=== PATIENT | female | born 1980 ===

== ENCOUNTER 2024-09-19 05:22 | Inpatient (IN) | payer OTHER ==
[~2024-09-19] VITALS: Ht 152.4 cm; Wt 70.8 kg
[2024-09-19] MEDS: LIDOCAINE 2%HCL (LOCAL ANESTH.) INJ 20ML MDV ONE (05:41)
[2024-09-19] MEDS: LACT. RINGERS/OXYTOCIN 20UNITS 1,000 ML IV ONE (05:41)
[2024-09-19] MEDS: PHISODERM TOP SOLN 240ML BTL TOP ONE (05:41)
[2024-09-19] MEDS: WITCH HAZEL-GLYCERIN PAD TOP ONE (05:41)
[2024-09-19] MEDS: DERMOPLAST 60ML BOTTLE TOP ONE (05:41)
[2024-09-19] MEDS: METHYLERGONOVINE MALEATE 0.2 MG/ML AMP IM ONE (05:42)
[2024-09-19] MEDS ORDERED: LIDOCAINE 2%HCL (LOCAL ANESTH.) INJ 20ML MDV IJ PRN (05:45)
[2024-09-19] MEDS ORDERED: LACTATED RINGER'S 1,000 ML IV SCH (05:45)
[2024-09-19] MEDS: PENICILLIN G POT 5MIL/D5 50ML 50 ML IV ONE ×2 (05:49→06:41)
--- NOTE | 2024-09-19 05:50 | DVHHP2 ---
OB CC & HPI Patient Identification: : 7 Para: 5 EDC: Oct 01, 2024 EGA: 38 weeks Chief Complaints: Reason for admission: active labor (complete dilated " 4cm since August" No records immediately available " group B Strep +" ; pre care " [facility] " ), other (On ASA daily for " low BP".) Other reason for admission: active Labor Admission Nurse Assessment Rev: Yes Past Medical History Cardiac: No pertinent Hx Pulmonary: No pertinent Hx Central Nervous System: No pertinent Hx GI: No pertinent Hx Hemotology/Oncology: No pertinent Hx Hepatobiliary: No pertinent Hx Psychiatric: No pertinent Hx Musculoskeletal: No pertinent Hx Rheumotologic: No pertinent Hx Infectious Disease: No peritnent Hx ENT: No pertinent Hx Renal/: No pertinent Hx Endocrine: No pertinent Hx Dermatology: No pertinent Hx Past Surgical History: No pertinent Hx OB History OB History Care: Good Care (" [facility] ") Ultrasounds: Normal mid trimester US (Per Patient verbal) Obstetrical Complications: Other (" Low BP") Other Concerns: On "ASA daily questionable why ". Allergies nkda Home Meds asa daily Current Medications ASA daily Family & Social History Family/Social History Blood Type: Unknown Rubella: unknown RPR/VDRL: Unknown GBS Status: Positive HBsAG: Unknown Review of Systems Constitutional: No symptom reported Ears, Nose, & Throat: No symptom reported Eyes: No symptom reported Pulmonary/Respiratory: No symptom reported Cardiovascular: No symptom reported Gastrointestinal: No symptom reported Genitourinary: No symptom reported Musculoskeletal: No symptom reported Skin: No symptom reported Psychiatric: No symptom reported Endocrine: No symptom reported Hemotologic/Lymphatic: No symptom reported OB Admission Exam Physical Exam HEENT: TMs Normal, Fontanelles Normal, Nasal Mucosa Normal, Eyes non-injected, Oropharynx Normal, PERRLA, Moist Membranes, EOMI Heart: Rhythm Normal Lungs: Clear Abdomen: Gravid Extremities: Normal Cervical Dilatation: 10cm Effacement: 100% Station: 0 Membranes: Intact Heart Rate: 130's Accelerations: Accelerations Present Decelerations: Early Decelerations Short Term Variability: Present Long-Term Variability: Average (6-25) Contractions on Admission: < 5 Minutes Apart Date/Time Contractions Began: 09/19/2024 Frequency of Contractions: q 3-5 min Duration: 1.5 min Intensity: Moderate OB Plan Plan Admitting Diagnosis: Active Labor ; PCN delicia for Group B Strep Expectant mgt Plan: Expectant Management JEFFERY AMIN DO Sep 19, 2024 05:50
--- NOTE | 2024-09-19 05:55 | LDN2 ---
Labor and Delivery Note Date 09/19/24 Age 43 7 Para 5 AB 2 EDC 10/01/2024 EGA 38 wks Diagnosis Active labor arrived 10cm Grand Multip Vaginal Delivery: VTX Vacuum Assisted: No Placenta: Spontaneous Sex: Female Weight 7lbs 30z Apgars 9/9 Nuchal Cord Transected: Yes (loose x1) Amniotic Fluid: Clear Anesthesia none Episiotomy: No Extension: No EBL 350 cc Complications none Conditions stable Farm Equipment Technician non present or needed Visit Coding OBGYN Date of Service: Sep 18, 2024 Billing Provider: JEFFERY AMIN DO BARREL MARKER Common Visit Codes: 45853-FLY/OBS SAME DATE (LOW), 66977-CYG/OBS SAME DATE (MOD), 72722-FBG/OBS SAME DATE (HIGH) BARREL MARKER Procedure Codes: 00815-ZNV DEL INCLUDING JEFFERY AMIN DO Sep 19, 2024 05:55
[2024-09-19] MEDS ORDERED: METHYLERGONOVINE MALEATE 0.2 MG/ML AMP IM PRN (06:30)
[2024-09-19] MEDS: LACT. RINGERS/OXYTOCIN 20UNITS 500 ML IV ONE ×2 (06:42→08:26)
[2024-09-19 06:54] LABS: Hematocrit 34.5 % (36.0-46.0); Hemoglobin 12.2 g/dL (12.2-16.2); Mean Corpuscular Hemoglobin 31.0 pg (28.0-32.0); Mean Corpuscular Volume 87.7 fL (80.0-100.0); Nucleated Red Blood Cells % 0.1 %
[2024-09-19 06:59] LABS: Alanine Aminotransferase < 9 U/L (7-40); Albumin 4.0 g/dL (3.2-4.8); Alkaline Phosphatase 170 U/L (46-116); Anion Gap 14 (5-15); BUN/Creatinine Ratio 19.2 (10.0-20.0); Bilirubin, Total 0.5 mg/dL (0.2-1.0); Blood Urea Nitrogen 10 mg/dL (9-23); Calcium 8.5 mg/dL (8.7-10.4); Carbon Dioxide 20 mmol/L (20-31); Chloride 105 mmol/L (98-107); Glucose 94 mg/dL (74-106); Potassium 3.9 mmol/L (3.5-5.1); Sodium 139 mmol/L (136-145); Total Protein 6.7 g/dL (5.7-8.2)
[2024-09-19 07:01] LABS: INR 0.92 (0.9-1.15); Partial Thromboplastin Time 24.6 SEC (24.5-34.5); Prothrombin Time 9.8 sec (9.3-11.8)
[2024-09-19] MEDS: PHISODERM TOP SOLN 240ML BTL TOP PRN (08:24)
[2024-09-19] MEDS: WITCH HAZEL-GLYCERIN PAD TOP PRN (08:24)
[2024-09-19] MEDS: IBUPROFEN 600 MG TAB PO PRN (08:24)
[2024-09-19] MEDS: DERMOPLAST 60ML BOTTLE TOP PRN (08:24)
[2024-09-19 09:41] LABS: Urine Protein, UAD 1+ (Negative)
[2024-09-19] MEDS ORDERED: PENICILLIN G POTASSIUM 2,500,000 UNITS in D5W 5% 50 ML IV SCH (09:45)
[2024-09-19 09:59] LABS: Amphetamine Screen, Urine Neg (NEGATIVE); Barbiturate Scree,Urine Neg (NEGATIVE); Benzodiazephine Screen, Urine Neg (NEGATIVE); Cannabinoid Screen, Urine Neg (NEGATIVE); Cocaine Screen, Urine Neg (NEGATIVE)
[2024-09-19 10:01] LABS: Opiate Scree,Urine Neg (NEGATIVE); Phencyclidine Screen, Urine Neg (NEGATIVE)
[2024-09-19 11:10] VITALS: BP 99/62; PULSE 74; RESP 15; TEMP 98.4; O2SAT 97
[2024-09-19 14:59] VITALS: BP 110/61; PULSE 78; RESP 16; TEMP 98; O2SAT 95
[2024-09-19] MEDS: ACETAMINOPHEN 325 MG TAB PO PRN (17:50)
[2024-09-19 19:00] VITALS: BP 100/63; PULSE 88; RESP 18; TEMP 98.5; O2SAT 98
[2024-09-19 23:00] VITALS: BP 101/60; PULSE 68; RESP 17; TEMP 97.9; O2SAT 98
[2024-09-20 03:00] VITALS: BP 95/59; PULSE 65; RESP 16; TEMP 97.8; O2SAT 98
--- NOTE | 2024-09-20 05:32 | DVHDS2 ---
Discharge Summary Date of Admission Sep 19, 2024 at 05:25 Date of Discharge: Sep 19, 2024 Admitting Diagnosis active labor Wounds: none Labs/Diagnostic Data: Laboratory Results Test 09/19/24 08:33 09/19/24 06:15 09/19/24 05:33 Urine Color Light-red (Yellow) Urine Clarity Ex.turbid (Clear) Urine pH 6.5 (5.0-9.0) Urine Specific [place] 1.025 (1.001-1.035) Urine Protein 1+ (Negative) Urine Ketones Negative (Negative) Urine Blood 3+ /uL (Negative) Urine Nitrite Negative (Negative) Urine Bilirubin Negative (Negative) Urine Urobilinogen Normal mg/dL (Negative) Urine Leukocyte Esterase 1+ /uL (Negative) Urine RBC 67896 /hpf (0 - 4) Urine Microscopic WBC 342 /HPF (0-5) Urine Squamous Epithelial Cells Few /hpf (<5) Urine Bacteria None seen /hpf (None Seen) Urine Glucose Normal mg/dL (Normal) Urine Opiates Screen Neg (NEGATIVE) Urine Fentanyl Screen Neg (NEGATIVE) Urine Barbiturates Screen Neg (NEGATIVE) Urine Phencyclidine Screen Neg (NEGATIVE) Urine Amphetamines Screen Neg (NEGATIVE) Urine Benzodiazepines Screen Neg (NEGATIVE) Urine Cocaine Screen Neg (NEGATIVE) Urine Cannabinoids Screen Neg (NEGATIVE) White Blood Count 6.8 10^3/uL (4.4-10.8) Red Blood Count 3.93 10^6/uL (4.0-5.20) Hemoglobin 12.2 g/dL (12.2-16.2) Hematocrit 34.5 % (36.0-46.0) Mean Corpuscular Volume 87.7 fL (80.0-100.0) Mean Corpuscular Hemoglobin 31.0 pg (28.0-32.0) Mean Corpuscular Hemoglobin Concent 35.3 g/dL (32.0-36.0) Red Cell Distribution Width 12.9 % (11.8-14.3) Platelet Count 231 10^3/uL (140-450) Mean Platelet Volume 9.0 fL (6.9-10.8) Neutrophils (%) (Auto) 65.8 % (37.0-80.0) Lymphocytes (%) (Auto) 27.8 % (10.0-50.0) Monocytes (%) (Auto) 5.3 % (0.0-12.0) Eosinophils (%) (Auto) 0.8 % (0.0-7.0) Basophils (%) (Auto) 0.3 % (0.0-2.0) Neutrophils # (Auto) 4.4 10 ^3/uL (1.6-8.6) Lymphocytes # (Auto) 1.9 10 ^3/uL (0.4-5.4) Monocytes # (Auto) 0.4 10 ^3/uL (0-1.3) Eosinophils # (Auto) 0.1 10 ^3/uL (0-0.8) Basophils # (Auto) 0 10 ^3/uL (0-0.2) Nucleated Red Blood Cells 0.1 % Prothrombin Time 9.8 sec (9.3-11.8) Prothrombin Time INR 0.92 (0.9-1.15) Activated Partial Thromboplast Time 24.6 SEC (24.5-34.5) Sodium Level 139 mmol/L (136-145) Potassium Level 3.9 mmol/L (3.5-5.1) Chloride Level 105 mmol/L (98-107) Carbon Dioxide Level 20 mmol/L (20-31) Anion Gap 14 (5-15) Blood Urea Nitrogen 10 mg/dL (9-23) Creatinine 0.52 mg/dL (0.550-1.02) Glomerular Filtration Rate Calc 120 mL/min (>90) BUN/Creatinine Ratio 19.2 (10.0-20.0) Serum Glucose 94 mg/dL (74-106) Calcium Level 8.5 mg/dL (8.7-10.4) Total Bilirubin 0.5 mg/dL (0.2-1.0) Aspartate Amino Transferase (AST) 13 U/L (13-40) Alanine Aminotransferase (ALT) < 9 U/L (7-40) Alkaline Phosphatase 170 U/L (46-116) Total Protein 6.7 g/dL (5.7-8.2) Albumin 4.0 g/dL (3.2-4.8) Treponema pallidum Antibody Non-reactive (Negative) Hepatitis B Surface Antigen Negative (Negative) Hepatitis C Antibody Negative (Negative) HIV (1&2) Antibody Negative (Negative) Rubella Antibody Positive Other Laboratory Tests 09/19/24 06:15 Brief Hx & Hospital Course: Patient came in delivered expediently Condition at Discharge: Good Final Diagnosis/Problems List s/p Discharge Disposition: Home Discharge Instruct/Medications Activity: Light activity Activity comment: pelvic rest 6 weeks Follow Up/Referral: 2 wks or prn Discharge Statement: "Patient was advised to return to the ER or call 911 if any headaches, dizziness, shortness of breath, chest pain, abdominal pain, bleeding, fevers, or worsening of medical condition. Patient was counseled about treatment plan, medications, possible side effects, patientverbalized understanding. All questions were answered to the best of my ability. This discharge took greater then 30 minutes in planning, reviewing documentation, counseling the patient, and discussing with other team members." ASSESSMENT ASSESSMENT Assessment Visit Coding OBGYN Date of Service: Sep 20, 2024 Billing Provider: JEFFERY AMIN DO CONVENTION SERVICES MANAGER Common Visit Codes: 10063-ETA/OBS SAME DATE (LOW), 33077-LDW/OBS SAME DATE (MOD), 30820-KMD/OBS SAME DATE (HIGH) CONVENTION SERVICES MANAGER Procedure Codes: 39222-CUC DEL INCLUDING JEFFERY AMIN DO Sep 20, 2024 05:32
--- NOTE | 2024-09-20 05:35 | DVHPN2 ---
Chief Complaints Patient reports: No new complaints, Feels better Nursing reports: No new complaints, No abdominal pain (pain controlled 04/25), No chest pain, No dizziness, No cough Objective Vitals Vital Signs Date Time Temp Pulse Resp B/P (MAP) Pulse Ox O2 Delivery O2 Flow Rate FiO2 09/20/24 03:56 97.8 09/20/24 03:00 65 16 95/59 (71) 98 09/19/24 19:20 Room Air Medications Current Medications Medications (Trade) Dose Ordered Sig/Rosy Route PRN Reason Start Time Stop Time Status Last Admin Acetaminophen (Tylenol Tablet) 650 mg Q4HP PRN PO MILD PAIN (1-3 PAIN SCALE) 09/19/24 06:45 09/20/24 01:26 Benzocaine (Dermoplast) 1 applic PRN PRN TOP PERINEAL AREA DISCOMFORT 09/19/24 05:45 09/19/24 08:24 Ibuprofen (Motrin Tablet) 600 mg Q6HP PRN PO MODERATE PAIN (4-6 PAIN SCALE) 09/19/24 06:45 09/20/24 03:56 Lactated Ringer's 1,000 ml @ 125 mls/hr Q8H IV 09/19/24 05:45 Cancel Lidocaine HCl (Xylocaine) 40 ml ONCE PRN IJ PERINEAL AREA DISCOMFORT 09/19/24 05:45 Cancel Methylergonovine Maleate (Methergine) 0.2 mg PRN PRN IM BLEED/HEMORRHAGE 09/19/24 06:30 Cancel Penicillin G Potassium [id number] units/Dextrose 50 ml @ 100 mls/hr Q4H IV 09/19/24 09:45 Cancel Sodium Lauryl Sulfate (Phisoderm) 240 ml PRN PRN TOP PERINEAL AREA DISCOMFORT 09/19/24 05:45 09/19/24 08:24 Witch Winifred (Tucks) 1 pad PRN PRN TOP PERINEAL AREA DISCOMFORT 09/19/24 05:45 09/19/24 08:24 General: Normal Head/Eyes: Normal Neck: Normal Lungs: Normal Cardiovascular: Normal Abdominal: Normal (Wound clean dry intact) Musculoskeletal: Normal Extremities: Normal Skin: Normal Neurological: Normal Studies Laboratory Tests 09/19/24 06:15 Test 09/19/24 06:15 Range/Units Serum Glucose 94 74-106 mg/dL Ass/Plan Assessment POD #1 stable improved Plan Advance care JEFFERY AMIN DO Sep 20, 2024 05:35
[2024-09-20] MEDS ORDERED: BISACODYL 10 MG RECT SUPP PR PRN (05:45)
[2024-09-20] MEDS ORDERED: HYDROcodone-ACET 5/325MG TAB PO PRN (05:45)
[2024-09-20] MEDS ORDERED: LACTATED RINGER'S 1,000 ML IV SCH (05:45)
[2024-09-20] MEDS ORDERED: SIMETHICONE 80 MG CHEWABLE TABLET PO SCH (06:00)
[2024-09-20 06:40] VITALS: BP 100/53; PULSE 82; RESP 18; TEMP 97.5; O2SAT 97
[2024-09-20 11:24] VITALS: BP 99/60; PULSE 76; RESP 18; TEMP 97.8; O2SAT 100
[2024-09-20] MEDS: IBUPROFEN 800 MG TAB PO PRN (11:29)
[2024-09-20 14:43] VITALS: BP 100/55; PULSE 67; RESP 18; TEMP 98.2; O2SAT 96
[2024-09-20 18:30] VITALS: BP 99/62; PULSE 72; RESP 18; TEMP 98; O2SAT 98
== END 2024-09-20 18:55 | disposition home or self-care (01) | DRG 560 ==
LOC: LDRP 05:22 → OBSVTOIN 05:25 → LDRP 05:33
PROVIDERS: ADMIT Obstetrics & Gynecology; ATTEND Obstetrics & Gynecology
PROC: 10E0XZZ Delivery of Products of Conception, External Approach (ICD-10-PCS; principal; 2024-09-19)
DX: O69.81X0 Labor and delivery complicated by cord around neck, without compression, not applicable or unspecified (principal); Z37.0 Single live birth; O99.824 Streptococcus B carrier state complicating childbirth; Z3A.38 38 weeks gestation of pregnancy
CPT/HCPCS: 36415; 59025; 59409; 80053; 80307; 81001; 81002; 85025; 85610; 85730; 86703; 86762; 86780; 86803; 86850; 86900; 86901; 87340; 94760; 96360; 96361; 96365; G0378; J2540; J2590; J7060